=== PATIENT | female | born 1985 | race Caucasian/White ===

== ENCOUNTER → 2020-08-07 17:20 | Outpatient (CLI) | payer OTHER, SELFPAY | PROVIDERS: PCP Family Medicine; Referring Provider Family Medicine; Visit Provider Family Medicine | DX: Z20.828 Contact with and (suspected) exposure to other viral communicable diseases (principal) | CPT/HCPCS: 87635; C9803; U0003 ==

== ENCOUNTER 2024-12-24 11:22 | Emergency (ER) | payer OTHER, MEDICARE, SELFPAY ==
[2024-12-24 11:23] VITALS: BP 138/94; PULSE 87; RESP 16; TEMP 36.8; O2SAT 96; BMI 29.5
--- NOTE | 2024-12-24 11:37 | EX.ED.DYSGE1 ---
HPI <WILLIAMS Queen - Last Filed: 12/24/24 12:27> History of Present Illness Chief Complaint: General Illness Narrative Narrative: 39-year-old female presents because she has had frequent belching since last night at 6 PM. She states she had greasy food for dinner last night at 5 PM. She has no nausea, vomiting, or abdominal pain. Normal bladder and bowel movements. She tried drinking warm water and deep breathing without improvement. The only medication she is on is Wellbutrin for depression. She went to [facility] urgent care and they recommended she come here for evaluation but she is not clear why. PFS <WILLIAMS Queen - Last Filed: 12/24/24 12:27> ON LICENSE OF [facility] Medical History (Updated 12/24/24 @ 12:27 by WILLIAMS Queen) ADHD Depression, unspecified Intellectual disability Encounter for plastic surgery following healed injury or operation Home Medications ?Medication ?Instructions ?Recorded ?Last Taken ?Type bupropion HCl 150 mg 24 hr tablet, 150 mg PO QAM #30 tabs 11/17/24 Unknown Rx extended release famotidine 20 mg tablet (Pepcid) 20 mg PO BID 7 days #14 tabs 12/24/24 Unknown Rx Allergy/AdvReac Type Severity Reaction Status Date / Time cefaclor (From [facility]) Allergy Mild Rash Verified 12/24/24 11:25 Family History Other Alzheimer disease Cancer Diabetes Heart disease Social History (Updated 12/24/24 @ 11:35 by Lesa Shaffer) housing: house Smoking Status: Never smoker alcohol intake: current alcohol intake frequency: a few times a week substance use type: does not use what type of physical activity do you participate in: aerobics ROS <WILLIAMS Queen - Last Filed: 12/24/24 12:27> ROS ED ROS Narrative Constitutional: Negative for fever, chills, malaise. CVS: Negative for chest pain. Respiratory: Negative for shortness of breath. GI: Negative for abdominal pain, nausea, vomiting, diarrhea. EXAM <WILLIAMS Queen - Last Filed: 12/24/24 12:27> Physical Exam Narrative Exam Narrative: CONST: Patient sitting in no acute distress. EYES: Normal inspection. NECK: Normal inspection. RESP: No respiratory distress, CTAB. CVS: Regular rate and rhythm, no murmur, no gallop. ABD: Soft and nontender, no guarding or rebound, nondistended, no hepatosplenomegaly. SKIN: Color normal, no rash, warm, dry, intact. EXTREMITIES: Normal appearance, no pedal edema. NEURO: Alert and answering questions appropriately. PSYCH: Normal affect. Const Vital Signs: 12/24/24 11:23 12/24/24 11:35 12/24/24 12:18 Temperature 98.2 F 98.2 F Temperature Source Oral Pulse Rate 87 87 Respiratory Rate 16 16 Respiratory Effort Normal Non-Labored Respiratory Pattern Normal Blood Pressure 138/94 H 138/94 H Blood Pressure Mean 108 108 Pulse Ox 96 96 Oxygen Delivery Method Room Air <Dr. Aashish Dodson DO - Last Filed: 12/24/24 12:24> Physical Exam Const Vital Signs: 12/24/24 11:23 12/24/24 11:35 12/24/24 12:18 Temperature 98.2 F 98.2 F Temperature Source Oral Pulse Rate 87 87 Respiratory Rate 16 16 Respiratory Effort Normal Non-Labored Respiratory Pattern Normal Blood Pressure 138/94 H 138/94 H Blood Pressure Mean 108 108 Pulse Ox 96 96 Oxygen Delivery Method Room Air MDM <WILLIAMS Queen - Last Filed: 12/24/24 12:27> [facility] Narrative Medical decision making narrative: History gathered from: Patient and mom Differential includes but not limited to GERD, constipation, obstruction 39-year-old female presents with belching since last night. She has no nausea, vomiting, or abdominal pain. She appears well and nontoxic. Vital signs stable. She belched 1 or 2 times during my exam. She denies abdominal pain but had very mild discomfort on palpation. Normal bowel sounds. KUB shows moderate stool burden with a nonobstructive bowel gas pattern. Patient states she has BMs every 1 to 2 days. I recommended MiraLAX or Metamucil and Gas-X and Pepcid as needed as she states symptoms started after eating greasy her food. This time with benign exam and no vomiting or signs of obstruction she does not require further emergent workup. She was discharged in stable condition. Radiography Diagnostic Testing: Clinical Impression(s) from Imaging Studies KUB X-Ray 12/24/24 11:53 IMPRESSION: Moderate fecal retention. Nonobstructive bowel gas pattern. No suspicious intra-abdominal calcifications or acute osseous abnormality. Reading Location: [facility] ED attending interpretation 1 view KUB shows moderate stool and gas throughout the colon, no air-fluid levels. <Dr. Aashish Dodson, DO - Last Filed: 12/24/24 12:24> MDM Radiography Diagnostic Testing: Clinical Impression(s) from Imaging Studies KUB X-Ray 12/24/24 11:53 IMPRESSION: Moderate fecal retention. Nonobstructive bowel gas pattern. No suspicious intra-abdominal calcifications or acute osseous abnormality. Reading Location: [facility] Treatment and Re-Evaluation :: I have personally performed a face to face assessment of the patient and have reviewed the FAMILIA Note. I performed a substantive portion of the visit including all aspects of the following. My zazueta findings include: History: Patient presents with persistent belching since last night. Patient states she has been having some nausea and belching since eating dinner last night. Patient states it began rather suddenly. Patient states it is constant. Patient denies any abdominal pain. Patient states nothing makes it worse. Patient states nothing makes it better. Patient denies any fevers or chills. Patient denies any diarrhea. Exam: Vital signs are stable. Patient is afebrile. Patient is in no acute distress. Oral mucosa is pink and moist. Neck is supple. Trachea is midline. There is no JVD. Heart was regular rate and rhythm. Lungs are clear and equal bilaterally. Abdomen is soft. Bowel sounds are normal. There is mild diffuse tenderness. There is no rebound or guarding noted. Cranial nerves II through XII are intact. There are no focal motor or sensory deficits noted. Medical Decision Making: Differential diagnosis includes gastritis, ileus, small bowel obstruction. Abdominal x-ray will be obtained to assess for ileus and small bowel obstruction. Patient was given a dose of Pepcid here. Abdominal x-ray was reviewed. There is 1 view. On my independent interpretation, there is no evidence of bowel obstruction or perforation. There is some gas in the stomach. There is stool throughout the colon. Radiologist also interpreted the x-ray and agrees. Patient was advised of her findings. Patient was instructed to use [employer] as needed. Patient is also instructed to use laxatives as needed. Patient was instructed to follow-up with her primary care physician in 5 to 7 days. Patient was instructed return if worse in any way. Patient understood and was agreeable with the plan. All questions were answered. Discharge Plan Triage Chief Complaint: General Illness ED Midlevel Provider: Eden Hawley ED Provider: Aashish Dodson Dx/Rx/DC Orders Clinical Impression: Belching, Constipation Instructions: Understanding Functional Dyspepsia Prescriptions: New famotidine [Pepcid] 20 mg tablet 20 mg PO BID 7 Days Qty: 14 0RF No Action bupropion HCl 150 mg tablet extended release 24 hr 150 mg PO QAM Qty: 30 2RF Primary Care Provider: Sergei Anna Referrals: Sergei Anna MD [Primary Care Provider] - Activity Restrictions/Additional Instructions: Avoiding caffeine, alcohol, spicy or fried foods may help. You can take Pepcid as needed. Print Language: Gambian Disposition Disposition: Home, Self Care Discharge Date/Time: 12/24/24 12:19
[2024-12-24] MEDS: Famotidine 20 MG Tablet PO (11:40)
--- NOTE | 2024-12-24 11:53 | RAD_ITS ---
PROCEDURE: Abdomen radiographs REASON FOR EXAM: PAIN TECHNIQUE: Two views of the abdomen COMPARISON: None FINDINGS: See impression RAD/Abdomen Single View (Portable) IMPRESSION: Moderate fecal retention. Nonobstructive bowel gas pattern. No suspicious int ra-abdominal calcifications or acute osseous abnormality. [facility]
[2024-12-24 12:18] VITALS: BP 138/94; PULSE 87; RESP 16; TEMP 36.8; O2SAT 96
== END 2024-12-24 12:19 | disposition home or self-care (01) ==
LOC: ED 12:06
PROVIDERS: Emergency Provider Emergency Medicine; PCP Family Medicine; Referring Provider Emergency Medicine; Visit Provider Emergency Medicine
DX: R14.2 Eructation (principal); K59.00 Constipation, unspecified; F32.A Depression, unspecified; Z79.899 Other long term (current) drug therapy; F79 Unspecified intellectual disabilities
CPT/HCPCS: 74018; 99282